=== PATIENT | female | born 1955 | race Caucasian/White ===

== ENCOUNTER → 2016-09-12 | Outpatient (CLI) | payer BC | END | disposition home or self-care (01) | LOC: HKI 08:57 | PROVIDERS: ATTEND Orthopaedic Surgery | DX: M17.11 Unilateral primary osteoarthritis, right knee (principal); G43.909 Migraine, unspecified, not intractable, without status migrainosus | CPT/HCPCS: G0463 ==

== ENCOUNTER → 2016-11-11 | Outpatient (CLI) | payer BC ==
--- NOTE | 2016-11-11 14:03 | RADRPT ---
PROCEDURE: Right knee radiographs. CLINICAL INDICATION: Right knee pain. TECHNIQUE: Four views. Weight bearing. Frontal, lateral, oblique, and patellar view. COMPARISON: No prior studies are available for comparison. FINDINGS: There is no fracture or dislocation. The soft tissues are normal. There are degenerative changes with osteophytes arising from all 3 joint compartment margins. There is medial joint compartment narrowing and subarticular sclerosis. There has been previous anterior cruciate ligament repair with hardware noted. There is no lytic or blastic lesion. IMPRESSION: 1. Moderate degenerative change. 2. Prior anterior cruciate ligament repair. RPTAT: QQ .Alejandro Mejía MD, MD Date Time Electronically viewed and signed by .Alejandro eMjía MD, MD on 11/11/2016 14:03 .R/
--- NOTE | 2016-11-11 14:04 | RADRPT ---
PROCEDURE: Limited x-ray of both lower extremities. CLINICAL INDICATION: Bilateral leg pain. TECHNIQUE: Single frontal view of both lower extremities was obtained from the hips to the calves. COMPARISON: None. FINDINGS: There are mild degenerative changes of the hips with osteophytes noted. There are moderate degenera tive changes of both knees with osteophytes and medial joint compartment narrowing. There has been prior bilateral anterior cruciate ligament repair. IMPRESSION: 1. Mild degenerative changes of the hips and moderate degenerative changes of the knees. 2. Prior bilateral ACL repair. RPTAT: QQ .Alejandro Mejía MD, MD Date Time Electronically viewed and signed by .Alejandro Mejía MD, on 11/11/2016 14:04 .R/
== END | disposition home or self-care (01) ==
LOC: HKI 09:55
PROVIDERS: ATTEND Orthopaedic Surgery
DX: Z01.818 Encounter for other preprocedural examination (principal)
CPT/HCPCS: 77073

== ENCOUNTER 2016-11-15 07:36 | Inpatient (IN) | payer BC ==
[~2016-11-15] VITALS: Ht 162.6 cm; Wt 65.0 kg
[2016-11-15] VITALS (18 sets, daily range): BP systolic 113–134; BP diastolic 55–74; PULSE 75–98; RESP 7–19; Ht 162.6 cm; Wt 65.0 kg
[~2016-11-15 07:36] MED LIST: BUPIVACAINE LIPOSOME/PF 266 MG/20 ML VIAL INFIL ONE; LACTATED RINGER'S 1,000 ML IV SCH; ONDANSETRON 4 MG IV X 1 DOSE IV SCH; PREGABALIN 300 MG PO X1 PO SCH; SOD CHLORIDE 0.9% IV SCH; TRANEXAMIC ACID IV SCH; VANCOMYCIN 1 GM/NS 250 ML X1 BEFORE INCISION IVPB SCH
[2016-11-15] MEDS ORDERED: BUPIVACAINE 0.5% IRR ONE ×6 (08:00)
[2016-11-15] MEDS ORDERED: KETOROLAC IRR ONE ×6 (08:00)
[2016-11-15] MEDS ORDERED: MORPHINE SULFATE IRR ONE ×6 (08:00)
[2016-11-15] MEDS ORDERED: [UNRECOGNIZED DRUG - OTHER] IRR ONE ×6 (08:00)
[2016-11-15] MEDS ORDERED: NALT50TA9 PO (08:45)
[2016-11-15] MEDS ORDERED: ZOLM5TAB7 PO (08:46)
[2016-11-15] MEDS: oxyCODONE (CR) 10 MG TAB [oxyCONTIN] X1 DOSE PO SCH ×2 (08:47→15:06)
[2016-11-15] MEDS ORDERED: ATEN-51 PO (08:47)
[2016-11-15] MEDS ORDERED: ZOLP5TAB7 PO (08:48)
[2016-11-15] MEDS: traMADOL 50 MG TAB X 1 DOSE PO SCH ×2 (08:48→15:07)
[2016-11-15] MEDS ORDERED: EXPAREL NOTE (BUPIVICAINE LIPOSOMAL) XX SCH (09:00)
[2016-11-15] MEDS ORDERED: BACITRACIN 50000 UNITS INJ ONE (09:09)
[2016-11-15] MEDS ORDERED: VANCOMYCIN 1 GM INJ ONE (09:11)
[2016-11-15] MEDS ORDERED: SODIUM CL BACTERIOSTATIC 30 ML INJ ONE (09:11)
[2016-11-15] MEDS ORDERED: POLYMYXIN B 500000 UNIT INJ ONE (09:11)
[2016-11-15] MEDS ORDERED: TRANEXAMIC ACID 650 MG in SOD CHLORIDE 0.9% 100 ML IVPB SCH (10:00)
--- NOTE | 2016-11-15 10:08 | HPN ---
Date/Time of Note Date/Time of Note DATE: 11/15/16 TIME: 10:07 Interval H&P Admission Note Pt. seen H&P reviewed: No system changes No changes from H&P on 11/07/16 by Jonathan Napoles ERIK N. MD Nov 15, 2016 10:08
[2016-11-15] MEDS ORDERED: FENTAnyl 50 MCG/ML VIAL ONE (10:38)
[2016-11-15] MEDS ORDERED: PHENYLephrine (100 MCG/ML) 5ML SYG ONE (10:51)
[2016-11-15] MEDS ORDERED: CEFAZOLIN 1 GM INJ ONE (10:58)
[2016-11-15] MEDS ORDERED: LIDOCAINE 2% (SDV) 5 ML INJ ONE (10:58)
[2016-11-15] MEDS ORDERED: PROPOFOL 100 ML ONE (10:58)
[2016-11-15] MEDS ORDERED: FAMOTIDINE 20 MG INJ ONE (11:11)
[2016-11-15] MEDS ORDERED: DEXAMETHASONE 4 MG/ML 1 ML INJ ONE (11:11)
[2016-11-15] MEDS ORDERED: ONDANSETRON 4 MG INJ ONE (11:11)
[2016-11-15] MEDS ORDERED: EPHEDrine SULFATE 50 MG/5 ML SYG ONE (11:13)
[2016-11-15] MEDS ORDERED: ONDANSETRON 4 MG INJ IV PRN ×2 (12:30→13:00)
[2016-11-15] MEDS ORDERED: HYDROmorphONE (0.2 MG/ML) 10ML SYG IV PRN (12:30)
[2016-11-15] MEDS ORDERED: FENTAnyl 50 MCG/ML VIAL IV PRN (12:30)
[2016-11-15] MEDS ORDERED: PROCHLORPERAZINE 10 MG INJ IV PRN (12:30)
[2016-11-15] MEDS ORDERED: DIPHENHYDRAMINE 50 MG INJ IV PRN (12:30)
[2016-11-15] MEDS ORDERED: MEPERIDINE 25 MG INJ IV PRN (12:30)
--- NOTE | 2016-11-15 12:56 | OPR ---
Date/Time of Note Date/Time of Note DATE: 11/15/16 TIME: 12:52 Operative Report Procedure Description DATE: 11/15/2016 PREOPERATIVE DIAGNOSIS: Right knee osteoarthritis POSTOPERATIVE DIAGNOSIS: Right knee osteoarthritis OPERATION PERFORMED: Right total knee arthroplasty. SURGEON: Malou Ford MD BOOK STORE ASSOCIATE: Benjamin Lock PA-C COMPONENTS USED: DePuy Attune size 4 femoral component, size 3 tibial baseplate , 6 mm polyethylene insert, 35 patellar button ANESTHESIA: Spinal plus general endotracheal intubation, plus femoral nerve catheter. ANESTHESIOLOGIST: Amanda Delgado M.D. TOURNIQUET TIME: 56 minutes. ESTIMATED BLOOD LOSS: 50 cc INTRAVENOUS FLUIDS: 2300 cc crystalloid SPECIMENS: Bone and soft tissue. DRAINS: Hemovac x1. COMPLICATIONS: None. DISPOSITION: The patient tolerated the procedure well and was taken to the recovery room in stable condition. INDICATIONS: The patient is a 60-year-old woman who has had progressively worsening pain in the right knee with radiographic evidence of severe osteoarthritis. She has failed nonsurgical means of treatment to address her pain including activity modifications pain medications intra-articular injections and ambulatory assist devices. Despite these measures she has had worsening pain and I feel she will benefit from a total knee arthroplasty. The risks, benefits, and alternatives of the procedure were explained in detail to the patient. I explained the risks of the surgery to include but not be limited to, bleeding and possible need for blood transfusion; infection; pain; stiffness; neurovascular injury with possible numbness, weakness, and/or paralysis anywhere from the knee down to the toes; fracture; instability; dislocation; wear and/or loosening of the prosthesis and possible need for future revision; blood clots; pulmonary embolism; and anesthetic complications such as heart attack, stroke, GI bleed, pneumonia, and/or . Ample time was allowed for the patient to ask questions, all of which were addressed and answered. The patient understood the risks involved and wished to proceed. Informed consent was signed prior to the procedure. PROCEDURE: The patient's right knee was initialed with a marking pen in the preoperative area to identify the correct operative site. The patient was brought to the operating room and transferred from the [facility] to the operating table where a spinal anesthetic was administered. The patient was then anesthetized and intubated. A Roberts catheter was placed. A timeout was performed to confirm that the right leg was the correct operative site. The patient was given 1 g of vancomycin and 2 g of Ancef within one hour prior to the procedure. A tourniquet was placed on the operative proximal thigh. The operative knee and lower extremity were prepped and draped in the usual sterile fashion. The operative lower extremity was elevated and exsanguinated with an Esmarch tourniquet. The proximal thigh tourniquet was inflated to 300 mmHg. The knee was flexed. A midline incision was made and carried down through the subcutaneous tissue and fat with sharp dissection. Limited medial and lateral flaps were raised. A median parapatellar approach was performed. Synovial fluid was normal in color and consistency. The patella was everted and the knee flexed. There were severe tricompartmental osteoarthritic changes noted. A medial release was performed at the joint line to the midcoronal plane. The ACL and PCL and remnants of the menisci were excised. The stepped drill was used to open up the femoral canal which was irrigated and sucked dry. The intramedullary guide tanisha was passed up the femur, and the distal cutting block was pinned into place for a 5 degree valgus cut, taking 10 mm of bone off distally. The oscillating saw was used to make the cut. The tibia was subluxed anteriorly. The tibial cutoff jig was placed over the center of the talus distally and over the junction of the medial and middle third of the tibial tubercle proximally. The guide was pinned into place and the oscillating saw was used to make the cut. The tibia was sized. The extension gap was checked and accommodated a 6 mm spacer block with the knee in full extension. There was no varus or valgus instability. At this point, the femur was sized with the posterior referencing guide. Two holes were drilled in 3 degrees of external rotation. The two holes were in line with the transepicondylar axis, perpendicular to Hughes's line, and in line with the tibial cutoff jig brought up with the knee flexed 90 degrees and tensed with 2 lamina spreaders, suggesting the femoral rotation was correct. The four-in-one cutting block was pinned into place. The anterior and posterior cuts and chamfer cuts were made with the oscillating saw. The flexion gap was checked and accommodated the 6 mm spacer block at 90 degrees. There was no varus or valgus instability, suggesting the flexion and extension gaps were now equal. The central box was cut out on the femur. The tibia was drilled and punched in proper rotation. Trial components were placed into position with a trial insert. The patella was cut down to 14 mm and sized. Three holes were drilled and the trial button placed in position. With all the trials now in place, the knee was taken through range of motion and came to full extension as evidenced by the fact that with the foot on my abdomen and axial loading, there was no tendency for the knee to flex. The knee was able to be flexed to 125 degrees with good patellar tracking with no lateral tilt or subluxation. At this point, I was satisfied with the overall range of motion, stability, and patellar tracking. The trials were removed. The real components were opened. Two bags of cement were mixed, one with and one without premixed antibiotic. The knee was irrigated with antibiotic saline and sucked dry. Once the cement was in a doughy stage, the real components were cemented into place. The knee was held in full extension, and the patellar component was held with a patellar clamp. All excess cement was removed with curettes. As the cement was hardening, the synovial/capsular layer was infiltrated with a mixture of 150 mg of 0.5% Bupivacaine, 8 mg of Duramorph, 300 mcg of epinephrine, 30 mg of Toradol, 100 mcg of clonidine, 750 mg of cefuroxime and 86 mL of normal saline, followed by an injection of 266 mg of liposomal Bupivacaine. A Hemovac drain was placed in the deep portion of the wound and brought out the anterolateral thigh. Once the cement was completely hardened, the trial liner was removed, and the real insert was opened. The tourniquet was let down, and there was good hemostasis. The knee was then irrigated with a mixture of betadine/saline and then antibiotic saline with pulsatile lavage. The real insert was impacted into the tibia and reduced onto to the femur. The arthrotomy was closed with a few interrupted #1 Ethibond in a figure-of- eight fashion, and then closed in a watertight fashion with a running #2 Stratafix suture. Knee flexion was checked against gravity and came to 125 degrees. The subcutaneous layer was irrigated and closed with 2-0 Statafix, and then 3-0 Vicryl and then debbie on the skin. The wound was covered with an occlusive dressing, and secured with cast padding and a bias dressing. The drain was secured with 3-0 nylon. The sponge and needle counts were correct at the end of the case. The patient was then awakened, extubated, and taken to the recovery room in stable condition. MALOU FORD MD Nov 15, 2016 12:56
--- NOTE | 2016-11-15 12:58 | PN ---
Date/Time of Note Date/Time of Note DATE: 11/15/16 TIME: 12:56 Assessment/Plan Lines/Catheters IV Catheter Type (from Nrsg): Saline Lock Assessment/Plan Assessment/Plan Stable in PACU, s/p right TKA -continue Ancef -pain meds -ASA/SCDs -OOB with PT -check AM labs -monitor drain -d/c gramajo in AM XR of the right knee is pending at this time Subjective 24 Hr Interval Summary Stable in PACU. Denies pain> Moving all extremities. Exam/Review of Systems Vital Signs Vitals Vital Signs Date Time Temp Pulse Resp B/P Pulse Ox O2 Delivery O2 Flow Rate FiO2 11/15/16 09:16 97.4 75 18 117/68 99 Room Air Exam Free Text/Dictation Hemovac: minimal Dressing dry Incision clean, dry, and intact without redness or drainage Thigh soft 5/5 Quadriceps, Tibialis Anterior, EHL, Gastroc, Soleus, Peroneals Normal sensation Palpable DT/PT, CR <2 sec No distal edema EMILY DENNIS PA-C Nov 15, 2016 12:57
[2016-11-15] MEDS ORDERED: NA PHOSPHATE/BIPHOS 133 ML ENEMA PR PRN (13:00)
[2016-11-15] MEDS ORDERED: ZOLMITRIPTAN 5 MG PO PRN (13:00)
[2016-11-15] MEDS ORDERED: BISACODYL 10 MG SUPP PR PRN (13:00)
[2016-11-15] MEDS ORDERED: HYDROmorphONE 1 MG/ML SYG IV PRN (13:00)
[2016-11-15] MEDS ORDERED: MAGNESIUM HYDROXIDE 30ML CUP PO PRN (13:00)
[2016-11-15] MEDS ORDERED: NACL 0.9% 3 ML SYG IV SCH (13:00)
[2016-11-15] MEDS ORDERED: DIPHENHYDRAMINE 25 MG CAP PO PRN (13:00)
[2016-11-15] MEDS ORDERED: ATENOLOL 25 MG TAB PO PRN (13:00)
[2016-11-15] MEDS ORDERED: CEFAZOLIN 2 GM/50 ML (PMX) 50 ML IVPB ONE (13:03)
[2016-11-15] MEDS ORDERED: ASPIRIN (EC) 325 MG TAB PO ONE ×2 (13:03→13:30)
[2016-11-15] MEDS: CEFAZOLIN 2 GM/50 ML (PMX) 50 ML IVPB SCH ×2 (13:13→20:38)
[2016-11-15] MEDS: LACTATED RINGER'S 1,000 ML IV SCH ×2 (13:14→18:29)
[2016-11-15 13:23] LABS: HEMATOCRIT 36.5 % (37.0-47.0); HEMOGLOBIN 11.8 g/dl (12.0-16.0)
[2016-11-15] MEDS: traMADol 50 MG TAB PO SCH ×3 (13:30→23:25)
--- NOTE | 2016-11-15 13:35 | RADRPT ---
PROCEDURE: CR Right Knee CLINICAL INDICATION: Postop TECHNIQUE: An AP and lateral view were submitted COMPARISON: 11/11/2016 FINDINGS: Osseous Structures: There is been interval total right knee replacement with the components well-sea mario. The osseous elements otherwise appear rarefied but intact. There is again evidence of a previ ous ACL reconstruction. Join Spaces: There is a small amount of intra-articular air. A drain has been placed into the patell ar femoral joint space.. Soft Tissues: Anterior debbie been placed. IMPRESSION: 1. There is now a well seated total right knee replacement with the osseous elements intact. 2. Again there is evidence of previous ACL reconstruction. 3. A surgical drain has been placed and anterior debbie are noted. Physician Cristobal Date Time Electronically viewed and signed by Physician Cristobal on 11/15/2016 13:35 /
[2016-11-15 13:41] LABS: CALCIUM 8.5 mg/dl (8.4-10.2); CREATININE 0.64 mg/dl (0.44-1.00); POTASSIUM 3.6 mmol/L (3.5-5.1)
[2016-11-15] MEDS: PREGABALIN 50 MG CAP PO SCH ×2 (14:00→22:29)
[2016-11-15] MEDS ORDERED: PATIENT'S OWN MEDICATION SL PRN (14:00)
[2016-11-15] MEDS ORDERED: TRANEXAMIC ACID 650 MG in SOD CHLORIDE 0.9% 100 ML IVPB ONE ×2 (16:00→19:00)
[2016-11-15] MEDS: PANTOPRAZOLE (EC) 40 MG TAB PO SCH (18:24)
[2016-11-15] MEDS: DOCUSATE SODIUM 100 MG CAP PO SCH (20:38)
[2016-11-15] MEDS: ATENOLOL 25 MG TAB PO SCH (20:41)
[2016-11-15] MEDS: ASPIRIN (EC) 325 MG TAB PO SCH (22:28)
[2016-11-16] VITALS: BP 99/55; RESP 20
[2016-11-16] MEDS: CEFAZOLIN 2 GM/50 ML (PMX) 50 ML IVPB SCH (04:48)
[2016-11-16] MEDS: LACTATED RINGER'S 1,000 ML IV SCH ×3 (04:50→20:48)
[2016-11-16] MEDS: PANTOPRAZOLE (EC) 40 MG TAB PO SCH ×2 (05:17→18:10)
[2016-11-16] MEDS: traMADol 50 MG TAB PO SCH ×4 (05:17→23:42)
[2016-11-16 05:58] LABS: HEMATOCRIT 35.4 % (37.0-47.0); HEMOGLOBIN 11.4 g/dl (12.0-16.0)
[2016-11-16 06:12] LABS: CALCIUM 9.4 mg/dl (8.4-10.2); CREATININE 0.66 mg/dl (0.44-1.00); POTASSIUM 4.9 mmol/L (3.5-5.1)
[2016-11-16 08:00] VITALS: BP 101/59; RESP 18
--- NOTE | 2016-11-16 08:41 | PN ---
Date/Time of Note Date/Time of Note DATE: 11/16/16 TIME: 08:39 Assessment/Plan Lines/Catheters IV Catheter Type (from Nrsg): Peripheral IV Roberts in Place (from Nrsg): Yes Assessment/Plan Assessment/Plan Stable POD #1, s/p right TKA -pain meds as needed -ASA/SCDs -OOB with PT -check AM labs -drain removed -d/c planning. Will plan for home tomorrow Subjective 24 Hr Interval Summary No acute overnight events. Denies pain but complaining of mild stiffness. VSS, afebrile. Will plan to go home upon discharge. Exam/Review of Systems Vital Signs Vitals Vital Signs Date Time Temp Pulse Resp B/P Pulse Ox O2 Delivery O2 Flow Rate FiO2 11/16/16 08:00 98.4 81 18 101/59 98 11/15/16 16:45 Room Air Intake and Output 11/15/16 11/15/16 11/16/16 14:59 22:59 06:59 Intake Total 2400 ml 1636.5 ml 2100 ml Output Total 330 ml 1700 ml 2180 ml Balance 2070 ml -63.5 ml -80 ml Exam Free Text/Dictation Hemovac: 201cc Dressing dry Incision clean, dry, and intact without redness or drainage Thigh soft 5/5 Quadriceps, Tibialis Anterior, EHL, Gastroc, Soleus, Peroneals Normal sensation Palpable DT/PT, CR <2 sec No distal edema Results Result Diagram: 11/16/16 0458 11/16/16 0458 EMILY DENNIS PA-C Nov 16, 2016 08:41
[2016-11-16] MEDS: ATENOLOL 25 MG TAB PO SCH (08:45)
--- NOTE | 2016-11-16 08:51 | CONS ---
Date/Time of Note Date/Time of Note DATE: 11/16/16 TIME: 08:49 Assessment/Plan Assessment/Plan Additional Assessment/Plan 1. Doing well post op right knee replacement. 2. Labs rev Consultation Date/Type/Reason Admit Date/Time Nov 15, 2016 at 07:36 Initial Consult Date Detailed Summary Respiratory: No cough, No shortness of breath Cardiovascular: No chest pain Gastrointestinal: no complaints Genitourinary: no complaints Musculoskeletal: bone/joint pain (mild right knee pain) Exam/Review of Systems Vital Signs Vitals Vital Signs Date Time Temp Pulse Resp B/P Pulse Ox O2 Delivery O2 Flow Rate FiO2 11/16/16 08:00 98.4 81 18 101/59 98 11/15/16 16:45 Room Air Intake and Output 11/15/16 11/15/16 11/16/16 14:59 22:59 06:59 Intake Total 2400 ml 1636.5 ml 2100 ml Output Total 330 ml 1700 ml 2180 ml Balance 2070 ml -63.5 ml -80 ml Exam Neck: No jvd Respiratory: clear to auscultation Cardiovascular: regular rate and rhythm Gastrointestinal: soft Extremities: No edema (and no calf tend ) Results Result Diagram: 11/16/16 0458 11/16/16 0458 Results 24 hrs Laboratory Tests Test 11/15/16 13:14 11/16/16 04:58 Hemoglobin 11.8 L 11.4 L Hematocrit 36.5 L 35.4 L Sodium Level 144 144 Potassium Level 3.6 4.9 Chloride Level 108 103 Carbon Dioxide Level 24 29 Anion Gap 16 17 H Blood Urea Nitrogen 13 9 Creatinine 0.64 0.66 Glucose Level 147 104 # Calcium Level 8.5 9.4 Medications Medications Current Medications Miscellaneous Information 1 ea NOTE XX ; Start 11/15/16 at 09:00; Stop 11/19/16 at 08:59 Miscellaneous Information 5 mg 5 mg PRN PRN PO MIGRAINE; Start 11/15/16 at 13: 00; Status UNV Lactated Ringer's (Lr) 1,000 ml @ 125 mls/hr Q8H IV Last administered on t 04:50; Admin Dose 125 MLS/HR; Start 11/15/16 at 12:48 Tramadol HCl (Ultram) 50 mg Q6 PO ; Start 11/15/16 at 13:30; Stop 11/18/16 at 13 :29 Hydromorphone HCl (Dilaudid) 1 mg Q3H PRN IV PAIN LEVEL 8-10; Start 11/15/16 at 13:00 Ondansetron HCl (Zofran Inj) 4 mg Q6H PRN IV NAUSEA AND/OR VOMITING Last administered on 11/15/16 15:02; Admin Dose 4 MG; Start 11/15/16 at 13:00 Bisacodyl (Dulcolax Supp) 10 mg Q12H PRN [place] CONSTIPATION; Start 11/15/16 at 13: 00 Magnesium Hydroxide (Milk Of Mag) 30 ml BID PRN PO CONSTIPATION; Start at 13:00 Sodium Biphosphate/ Sodium Phosphate (Fleet Enema) 133 ml DAILY PRN [place] CONSTIPATION; Start 11/15/16 at 13:00 Docusate Sodium (Colace) 100 mg BID PO Last administered on 11/15/16 20:38; Admin Dose 100 MG; Start 11/15/16 at 21:00 Diphenhydramine HCl (Benadryl) 25 mg Q6H PRN PO PRURITUS; Start 11/15/16 at 13: 00 Acetaminophen/ Hydrocodone Bitart ([place] (7.5-325)) 1 tab Q4H PRN PO PAIN LEVEL 1-3; Start 11/15/16 at 13:00 Acetaminophen/ Hydrocodone Bitart ([place] (7.5-325)) 2 tab Q4H PRN PO PAIN LEVEL 4-7; Start 11/15/16 at 13:00 Aspirin (Ecotrin) 325 mg BID PO Last administered on 11/15/16 22:28; Admin Dose 325 MG; Start 11/15/16 at 23:00 Pantoprazole (Protonix Tab) 40 mg BID@,18 PO Last administered on 11/15/16 18:24; Admin Dose 40 MG; Start 11/15/16 at 18:00 Pregabalin (Lyrica) 50 mg BID PO ; Start 11/15/16 at 14:00 Patient Own Medication 5 ea DAILY PRN SL HEADACHE; Start 11/15/16 at 14:00; Status UNV Atenolol (Tenormin) 12.5 mg DAILY PO Last administered on 11/15/16 20:41; Admin Dose 12.5 MG; Start 11/15/16 at 21:00 CHASITY LAURA MD Nov 16, 2016 08:50
[2016-11-16] MEDS: PREGABALIN 50 MG CAP PO SCH ×3 (09:00→20:19)
[2016-11-16] MEDS: DOCUSATE SODIUM 100 MG CAP PO SCH ×2 (09:05→20:17)
[2016-11-16] MEDS: ASPIRIN (EC) 325 MG TAB PO SCH ×2 (09:05→20:17)
[2016-11-16] MEDS: HYDROCODONE/APAP (7.5/325) TAB PO PRN ×3 (14:28→22:45)
[2016-11-16 19:45] VITALS: BP 99/58; RESP 22
[2016-11-17] MEDS ORDERED: ZOLPIDEM 5 MG TAB PO PRN
[2016-11-17] MEDS: HYDROCODONE/APAP (7.5/325) TAB PO PRN (03:41)
[2016-11-17] MEDS: LACTATED RINGER'S 1,000 ML IV SCH ×2 (04:48→12:43)
[2016-11-17 05:28] LABS: HEMATOCRIT 33.7 % (37.0-47.0); HEMOGLOBIN 10.8 g/dl (12.0-16.0)
[2016-11-17 05:59] LABS: CALCIUM 8.4 mg/dl (8.4-10.2); CREATININE 0.7 mg/dl (0.44-1.00)
[2016-11-17] MEDS: traMADol 50 MG TAB PO SCH ×2 (06:04→12:39)
[2016-11-17] MEDS: PANTOPRAZOLE (EC) 40 MG TAB PO SCH (06:04)
[2016-11-17 07:00] VITALS: BP 109/56; RESP 20
--- NOTE | 2016-11-17 08:23 | PDOCDIS ---
Discharge Instructions DIAGNOSIS Discharge Diagnosis s/p right TKA CONDITION Patient Condition: Good HOME CARE INSTRUCTIONS: Diet Instructions: RegularSpecial Diet: GLUTEN FREE _ CELIAC DSE ACTIVITY: Activity Restrictions: Slowly Increase Activity Rest between Activity Avoid heavy lifting Do not Drive Do not operate Machinery Do not operate Power Tool Avoid Heavy Housework Keep Limb Elevated Weight Bearing Bathing Restrictions: Shower FOLLOW UP/APPOINTMENTS Follow-up Plan follow up in the office on 11/25/16 OTHER ORDERS: Other Orders: S/P TKA Physical Therapy: Three times per week at home x 2 weeks Daily in Rehab/SNF WB STATUS: WBAT 1. Strengthening exercises for both upper and un-operated lower extremities. 2. Gait training with front wheeled walker 3. Active range of motion exercises to operative knee. 4. When not working on knee range of motion exercises, distal towel roll under operative ankle/distal calf to promote full extension. 5. DO NOT PUT ANYTHING BEHIND OPERATIVE KNEE!!! 6. Quadriceps and hamstring strengthening. 7. May switch to cane in contra lateral hand 6 weeks after surgery. 8. Physical Therapy can open case if nursing is not available. 9. Use Ice Machine as instructed from date of surgery while at rest 3X/day. 10. Patient requires mobile SCDs to reduce risk of developing DVT following TKA. Patient will use the mobile SCDs for 30 days postoperatively. Bathing assistance by home health aide twice weekly if Medicare patient. Occupational Therapy: Evaluation for assistive devices and ADL training. Wound Care: Keep incision dry & covered with Tegaderm until first visit with Dr. Feng Anticoagulation Orders: Enteric Coated Aspirin 325 mg po bid x 6 weeks from date of surgery Follow-up:Call for an appointment with Dr. eFng in 1 week after discharged from hospital at DME Orders: FWW, 3-in-1 Commode, Polar ice machine, Mobile SCDs EMILY DENNIS PA-C Nov 17, 2016 08:23
[2016-11-17] MEDS ORDERED: PREG50CA PO (08:25)
[2016-11-17] MEDS ORDERED: TRAM50TA2 PO (08:25)
[2016-11-17] MEDS ORDERED: ASPI325T32 PO (08:25)
[2016-11-17] MEDS ORDERED: PANT40TA4 PO (08:27)
[2016-11-17] MEDS: ATENOLOL 25 MG TAB PO SCH (08:37)
[2016-11-17] MEDS: DOCUSATE SODIUM 100 MG CAP PO SCH (08:38)
[2016-11-17] MEDS: ASPIRIN (EC) 325 MG TAB PO SCH (08:38)
[2016-11-17] MEDS: PREGABALIN 50 MG CAP PO SCH (09:00)
--- NOTE | 2016-11-17 10:04 | PN ---
Date/Time of Note Date/Time of Note DATE: 11/17/16 TIME: 10:02 Assessment/Plan Lines/Catheters IV Catheter Type (from Nrsg): Peripheral IV Roberts in Place (from Nrsg): No Assessment/Plan Assessment/Plan Stable POD #2, s/p right TKA -switch to oxycodone 5mg instead of norco for better pain control -stop naltrexone as this works antagonistically against opiate narcotics used for pain -ASA/SCDs -OOB with PT -dressing changed -tentatively plan for discharge this afternoon if pain under better control Subjective 24 Hr Interval Summary No acute overnight events. Having increased pain today. Took norco but did not have relief. Taking naltrexone for headaches which may be working as an antagonist against the narcotic pain medication. Will switch her to oxycodone for better pain control. VSS, afebrile. Will tentatively plan for discharge this afternoon. Exam/Review of Systems Vital Signs Vitals Vital Signs Date Time Temp Pulse Resp B/P Pulse Ox O2 Delivery O2 Flow Rate FiO2 11/17/16 07:00 98.5 82 20 109/56 98 11/15/16 16:45 Room Air Intake and Output 11/16/16 11/16/16 11/17/16 15:00 23:00 07:00 Intake Total 625 ml 1160 ml 650 ml Balance 625 ml 1160 ml 650 ml Exam Free Text/Dictation Dressing dry Incision clean, dry, and intact without redness or drainage Thigh soft 5/5 Quadriceps, Tibialis Anterior, EHL, Gastroc, Soleus, Peroneals Normal sensation Palpable DT/PT, CR <2 sec No distal edema Results Result Diagram: 11/17/16 0433 11/17/16 0433 EMILY DENNIS PA-C Nov 17, 2016 10:04
[2016-11-17] MEDS: oxyCODONE 5 MG TAB PO PRN ×2 (10:23→15:10)
--- NOTE | 2016-11-17 11:50 | CONS ---
Date/Time of Note Date/Time of Note DATE: 11/17/16 TIME: 11:49 Assessment/Plan Assessment/Plan Additional Assessment/Plan 1. Continues to do well post op right knee replacement. 2. Labs rev 3. Can dc if ok with ortho and PT Consultation Date/Type/Reason Admit Date/Time Nov 15, 2016 at 07:36 Detailed Summary Respiratory: No shortness of breath Cardiovascular: No chest pain Gastrointestinal: no complaints Genitourinary: no complaints Musculoskeletal: bone/joint pain (mild right knee pain) Exam/Review of Systems Vital Signs Vitals Vital Signs Date Time Temp Pulse Resp B/P Pulse Ox O2 Delivery O2 Flow Rate FiO2 11/17/16 07:00 98.5 82 20 109/56 98 11/15/16 16:45 Room Air Intake and Output 11/16/16 11/16/16 11/17/16 15:00 23:00 07:00 Intake Total 625 ml 1160 ml 650 ml Balance 625 ml 1160 ml 650 ml Exam Neck: No jvd Respiratory: clear to auscultation Cardiovascular: regular rate and rhythm Gastrointestinal: soft Extremities: No edema (and no calf tend) Results Result Diagram: 11/17/16 0433 11/17/16 0433 Results 24 hrs Laboratory Tests Test 11/17/16 04:33 Hemoglobin 10.8 L Hematocrit 33.7 L Sodium Level 143 Potassium Level 4.0 Chloride Level 104 Carbon Dioxide Level 28 Anion Gap 15 Blood Urea Nitrogen 15 Creatinine 0.70 Glucose Level 90 Calcium Level 8.4 Medications Medications Current Medications Miscellaneous Information 1 ea NOTE XX ; Start 11/15/16 at 09:00; Stop 11/19/16 at 08:59 Miscellaneous Information 5 mg 5 mg PRN PRN PO MIGRAINE; Start 11/15/16 at 13: 00; Status UNV Lactated Ringer's (Lr) 1,000 ml @ 125 mls/hr Q8H IV Last administered on 04:50; Admin Dose 125 MLS/HR; Start 11/15/16 at 12:48 Tramadol HCl (Ultram) 50 mg Q6 PO Last administered on 11/17/16 06:04; Admin Dose 50 MG; Start 11/15/16 at 13:30; Stop 11/18/16 at 13:29 Ondansetron HCl (Zofran Inj) 4 mg Q6H PRN IV NAUSEA AND/OR VOMITING Last administered on 11/15/16 15:02; Admin Dose 4 MG; Start 11/15/16 at 13:00 Bisacodyl (Dulcolax Supp) 10 mg Q12H PRN [place] CONSTIPATION; Start 11/15/16 at 13: 00 Magnesium Hydroxide (Milk Of Mag) 30 ml BID PRN PO CONSTIPATION; Start at 13:00 Sodium Biphosphate/ Sodium Phosphate (Fleet Enema) 133 ml DAILY PRN [place] CONSTIPATION; Start 11/15/16 at 13:00 Docusate Sodium (Colace) 100 mg BID PO Last administered on 11/17/16 08:38; Admin Dose 100 MG; Start 11/15/16 at 21:00 Diphenhydramine HCl (Benadryl) 25 mg Q6H PRN PO PRURITUS; Start 11/15/16 at 13: 00 Aspirin (Ecotrin) 325 mg BID PO Last administered on 11/17/16 08:38; Admin Dose 325 MG; Start 11/15/16 at 23:00 Pantoprazole (Protonix Tab) 40 mg BID@,18 PO Last administered on 11/17/16 06:04; Admin Dose 40 MG; Start 11/15/16 at 18:00 Pregabalin (Lyrica) 50 mg BID PO ; Start 11/15/16 at 14:00 Patient Own Medication 5 ea DAILY PRN SL HEADACHE; Start 11/15/16 at 14:00; Status UNV Atenolol (Tenormin) 12.5 mg DAILY PO Last administered on 11/15/16 20:41; Admin Dose 12.5 MG; Start 11/15/16 at 21:00 Zolpidem Tartrate (Ambien) 5 mg HS PRN PO INSOMNIA; Start 11/17/16 at 00:00 Oxycodone HCl (Roxicodone) 5 mg Q4H PRN PO PAIN Last administered on 11/17/16 10:23; Admin Dose 5 MG; Start 11/17/16 at 10:30 CHASITY LAURA MD Nov 17, 2016 11:50
[2016-11-17] MEDS ORDERED: OXYC-279 PO (13:21)
--- NOTE | 2016-11-17 16:14 | DS ---
Date/Time of Note Date/Time of Note DATE: 11/17/16 TIME: 16:08 Discharge Summary Admission/Discharge Info Admit Date/Time Nov 15, 2016 at 07:36 Discharge Date/Time 11/17/2016 Discharge Diagnosis s/p right TKA Patient Condition: Good Procedures Right total knee arthroplasty Hospital Course This is a 60-year-old female, who was seen in the clinic initially complaining of right knee pain. She had undergone conservative modalities unsuccessfully, and it was thought she would benefit from right total knee arthroplasty. On , the patient was admitted and taken to the operating room where she underwent a right total knee arthroplasty. There were no intraoperative complications. Patient tolerated procedure well. She was taken to recovery room in stable condition. Pain was well controlled oral pain medication. She was started on aspirin and SCDs for DVT prophylaxis. She remained hemodynamically stable neurovascularly intact throughout her hospital stay. She began physical therapy on postoperative day 1 and continue to make a progress. Ultimately she was deemed stable for discharge on postoperative day 2. Prior to discharge, the incision was inspected and noted to be clean dry and intact. Dressing changes were done prior to patient going home. DISCHARGE INSTRUCTIONS: The patient will be discharged home in stable condition. She is to resume her normal diet. She is weightbearing as tolerated on right lower extremity. She will begin physical therapy with home health. She discharged home with a medication noted, is to resume all of her normal home medication. She is to call the office or go to emergency room for any concerns including increased redness, swelling, drainage, fever, or any concerns regarding the operation or site of incision. Home Meds Active Scripts Oxycodone HCl/Acetaminophen (Percocet 5-325 mg Tablet) 1 Each Tablet, 1 EACH PO Q4, #60 TAB Prov:EMILY DENNIS PA-C 11/17/16 Pantoprazole* (Pantoprazole*) 40 Mg Tablet.dr, 40 MG PO BID@06,18 for 40 Days, # 40 Prov:EMILY DENNIS PA-C 11/17/16 Tramadol HCl (Tramadol HCl) 50 Mg Tablet, 50 MG PO Q6 for 30 Days, #60 TAB Prov:EMILY DENNIS PA-C 11/17/16 Pregabalin* (Lyrica*) 50 Mg Capsule, 50 MG PO BID for 30 Days, #60 CAP Prov:EMILY DENNIS PA-C 11/17/16 Aspirin (Aspir-Rosa Isela) 325 Mg Tablet.dr, 325 MG PO BID for 40 Days, #80 Prov:EMILY DENNIS PA-C 11/17/16 Reported Medications Atenolol* (Atenolol*) 25 Mg Tablet, 12.5 MG PO DAILY Y for PALPITATION, #30 TAB 11/15/16 Zolmitriptan (Zomig) 5 Mg Tab, 5 MG PO PRN Y for MIGRAINE, TAB may repeat after 2 hours, MAX 5 mg/single dose; MAX 10 mg/24 hours 11/15/16 Discontinued Reported Medications Zolpidem Tartrate* (Zolpidem Tartrate*) 5 Mg Tablet, 5 MG PO QHS Y for INSOMNIA , #30 TAB 11/15/16 Naltrexone Hcl (Revia) 50 Mg Tablet, 1.5 MG PO QHS, TAB 11/15/16 Follow-up Plan Follow-up in the office on 11/25/2016 Primary Care Provider Justin Jaimes Pending Labs Laboratory Tests Test 11/17/16 04:33 Hemoglobin 10.8g/dl (12.0-16.0) Hematocrit 33.7% (37.0-47.0) Sodium Level 143mmol/L (135-144) Potassium Level 4.0mmol/L (3.5-5.1) Chloride Level 104mmol/L (97-110) Carbon Dioxide Level 28mmol/L (21-31) Anion Gap 15 (8-16) Blood Urea Nitrogen 15mg/dl (7-20) Creatinine 0.70mg/dl (0.44-1.00) Glucose Level 90mg/dl (70-220) Calcium Level 8.4mg/dl (8.4-10.2) EMILY DENNIS PA-C Nov 17, 2016 16:14
== END 2016-11-17 14:45 | disposition home health service (06) | DRG 470 ==
LOC: REC 07:36 → MS1 14:08
PROVIDERS: ADMIT Orthopaedic Surgery; ATTEND Orthopaedic Surgery
PROC: 0SRC0J9 Replacement of Right Knee Joint with Synthetic Substitute, Cemented, Open Approach (ICD-10-PCS; principal; 2016-11-15 10:00)
DX: M17.11 Unilateral primary osteoarthritis, right knee (principal)
CPT/HCPCS: 73560; 80048; 85014; 85018; 86850; 86900; 86901; 86920; 87081; 87086; 88304; 88311; 97110; 97116; 97162; 97166; 97530; C1776; C9290; J0690; J0735; J1100; J1170; J1885; J2274; J2370; J2405; J3010; J3370; J7120

== ENCOUNTER → 2016-11-25 | Outpatient (CLI) | payer BC ==
[~2016-11-25] MED LIST changes: +ASPI325T32 PO; +ATEN-51 PO; -BUPIVACAINE LIPOSOME/PF 266 MG/20 ML VIAL INFIL ONE; -LACTATED RINGER'S 1,000 ML IV SCH; -ONDANSETRON 4 MG IV X 1 DOSE IV SCH; +OXYC-279 PO; +PANT40TA4 PO; +PREG50CA PO; -PREGABALIN 300 MG PO X1 PO SCH; -SOD CHLORIDE 0.9% IV SCH; +TRAM50TA2 PO; -TRANEXAMIC ACID IV SCH; -VANCOMYCIN 1 GM/NS 250 ML X1 BEFORE INCISION IVPB SCH; +ZOLM5TAB7 PO
--- NOTE | 2016-11-25 12:00 | PN ---
Date/Time of Note Date/Time of Note DATE: 11/25/16 TIME: 11:57 Assessment/Plan VTE Prophylaxis VTE Prophylaxis Intervention: ambulation, other Assessment/Plan Assessment/Plan ASSESSMENT: 10 days status post right total knee arthroplasty PLAN: The debbie were removed today, and Steri-Strips were applied. She is to continue physical therapy with home health focusing on range of motion and strength. She is to continue ambulate with a front wheel walker and transition to a cane as tolerated. Additionally she is to continue aspirin 325 mg twice daily for DVT prophylaxis and use pain medicine as needed. We will see her back in 2 weeks for range of motion check. She is to call the office in the meantime if she has any concerns. Subjective 24 Hr Interval Summary Free Text/Dictation The patient presents today for her first postoperative evaluation. She is 10 days status post right total knee arthroplasty. She is doing well overall. She is having some mild pain that is controlled with the Percocet and tramadol she is taking. She denies any fevers or chills. She is doing physical therapy with home health. She does feel she is making progress. She presents today for her first postoperative evaluation. Exam/Review of Systems Exam On exam today, she is alert and oriented 4, and in no acute distress. She is ambulating with a front wheel walker. Exam of the incision demonstrates it to be clean, dry, and intact. Gallup are in place. Range of motion 0-80. Varus and valgus forces are stable. There is no erythema, warmth, pus, or drainage noted. Compartments are soft. There is no significant soft tissue swelling. Homans sign is negative. She is neurovascularly intact distally. IMAGING: X-rays of the right knee were obtained today and reviewed by me. They demonstrate good anatomic alignment with no fractures or dislocations identified. EMILY DENNIS PA-C Nov 25, 2016 12:00
--- NOTE | 2016-11-25 14:23 | RADRPT ---
PROCEDURE: Right knee radiographs. CLINICAL INDICATION: Right knee pain. Postop. TECHNIQUE: Two views. Frontal and lateral. COMPARISON: 11/15/2016. FINDINGS: There is no fracture or dislocation. Anterior skin debbie are noted. The surgical drain is removed. There is a total right knee arthroplasty which appears satisfactory. There is no lytic or blastic lesion. There is no joint effusion. IMPRESSION: 1. Satisfactory postoperative appearance of the right knee. RPTAT: QQ .Alejandro Mejía MD, MD Date Time Electronically viewed and signed by .Alejandro Mejía MD, on 11/25/2016 14:22 .R/
== END | disposition home or self-care (01) ==
LOC: HKI 09:23
PROVIDERS: ATTEND Orthopaedic Surgery
DX: Z47.89 Encounter for other orthopedic aftercare (principal); M25.561 Pain in right knee

== ENCOUNTER → 2016-12-09 | Outpatient (CLI) | payer BC | END | disposition home or self-care (01) | LOC: HKI 13:32 | PROVIDERS: ATTEND Orthopaedic Surgery | DX: Z47.1 Aftercare following joint replacement surgery (principal); M17.11 Unilateral primary osteoarthritis, right knee; Z96.651 Presence of right artificial knee joint ==

== ENCOUNTER → 2016-12-14 | Outpatient (CLI) | payer BC | END | disposition home or self-care (01) | LOC: HKI 08:44 | PROVIDERS: ATTEND Orthopaedic Surgery | DX: Z47.1 Aftercare following joint replacement surgery (principal); Z96.651 Presence of right artificial knee joint; M17.11 Unilateral primary osteoarthritis, right knee; Z88.0 Allergy status to penicillin ==